=== PATIENT | female | born 1955 | race Caucasian/White ===

== ENCOUNTER 2019-09-25 00:05 | Observation (INO) | payer MEDICARE, OTHER ==
[2019-09-25] VITALS (12 sets, daily range): BP systolic 118–144; BP diastolic 55–72; PULSE 64–98; TEMP 97.5–98.8
[~2019-09-25] VITALS: Ht 154.9 cm; Wt 78.3 kg
[2019-09-25] MEDS ORDERED: OMEGA-3 FISH1000 MG PO (00:34)
[2019-09-25] MEDS ORDERED: LIPITOR 10MG10 MG PO (00:34)
--- NOTE | 2019-09-25 04:40 | NUR ---
Patient arrived to Room 328 via EMS stretcher. IVF infusing to right AC. Patient able to transfer to the hospital bed independently. Med rec completed. [address] Ackerman notified of patient's arrival and orders received. New fluids hung and infuse to right AC. Patient denies any pain or nausea. Patient is NPO per physician orders. Will conitinue to monitor.
[2019-09-25 07:25] LABS: ALBUMIN 3.6 gm/dL (3.5-5.0); BILIRUBIN,TOTAL 1.2 mg/dL (0.0-1.0); CREATININE, serum 0.73 (0.52-1.25); TOTAL PROTEIN 6.6 gm/dL (6.4-8.2)
[2019-09-25 07:30] LABS: BASO % 0.4 % (0.0-2.0); EOS # 0.1 (0.0-0.7); EOS % 1.7 % (0-4.0); GRAN # 4.8 (1.4-6.5); GRAN % 58.1 % (42.2-75.2); HEMOGLOBIN 12.5 g/dl (12.5-16.0); LYMPH # 2.6 (1.2-3.4); LYMPH % 31.1 % (20.0-51.0); MEAN CELL VOLUME 91 fl (80.0-100.0); MEAN CORPUSCULAR HEMOGLOBIN 29 pg (27.0-31.0); MEAN CORPUSCULAR HGB CONC 32 g/dl (33.0-37.0); MEAN PLATELET VOLUME 11.1 fl (7.4-10.4); MONO # 0.7 (0.1-0.6); MONO % 8.2 % (1.7-9.3); PLATELET COUNT 225 K/mm3 (130-400); RED BLOOD COUNT 4.31 M/mm3 (4.10-5.30); REDCELL DISTRIBUTION WIDTH-CV 13.7 % (11.5-14.5)
--- NOTE | 2019-09-25 08:00 | NUR ---
NPO. Denies pain or nausea. IV fluids infusing.
--- NOTE | 2019-09-25 10:45 | NUR ---
Dr. Ackerman saw patient. Surgical consent signed. To surgery per bed with OR staff.
--- NOTE | 2019-09-25 13:00 | NUR ---
Received patient from PACU per bed. VSS. States feels good. Bandaids x 4 to abdomen CDI.
--- NOTE | 2019-09-25 16:00 | NUR ---
Complained of intermittent epigastric pain like before surgery. Denied need for pain med. Ambulatory to bathroom and voided. VSS.
--- NOTE | 2019-09-25 18:00 | NUR ---
No complaints. Ambulatory in room. Taking food and fluids slowly.
[2019-09-26 03:52] VITALS: BP 119/56; PULSE 69; TEMP 98
--- NOTE | 2019-09-26 04:05 | NUR ---
Patient has rested well throughout the night. Denies pain. Ambulates frequently and gait is steady. States she is burping, but no gas as of yet. 4 lap sites noted and are covered with bandaids. Bandaids are clean, dry, and intact. Fluids to INT. Patient tolerating food and fluids well. Denies any further needs. IV antibiotics administered as ordered. Will continue to monitor.
[2019-09-26 08:43] VITALS: BP 105/50; PULSE 89; TEMP 98.3
--- NOTE | 2019-09-26 09:34 | NUR ---
SW met with patient to complete intake. Patient lives in [place] with her Steven [phone]. Patient states that she does not utilize any DME, and is indepeden with ADL's. Patient states that her PCP is Akil Layo at [facility]. Patient states that she is able to afford her medications. Patient provides that she will be going back home with her upon discharge and has no concerns in regards to dc. Patient provided that someone told her that the hospital needed a copy of her insurance card. SW made copy of insurance card, placed in chart, and gave card back to patient. Patient appointed spouse Steven as her DPOA-HC documentation completed, reviewed and signed by patient and two witnesses, AUBREE and nurse Radha. Patient stated patient will be going home today. Nothing further.
[2019-09-26] MEDS ORDERED: NORCO 325 MG-51 TAB PO (10:41)
--- NOTE | 2019-09-26 12:15 | NUR ---
Ambulatory in halls. Denied pain. Took po fluids well. Dr. Diaz saw patient on consult. Dr. Ackerman saw patient. Prescription given. Instructed on NPO after midnight for ERCP tomorrow. Dismissed to home with spouse.
[2019-09-27] MEDS ORDERED: NORCO 325 MG-51 TAB PO (11:39)
== END 2019-09-26 12:15 | disposition home or self-care (01) ==
LOC: JCC 00:05
PROVIDERS: ADMIT Surgery
DX: K80.40 Calculus of bile duct with cholecystitis, unspecified, without obstruction (principal); K82.A2 Perforation of gallbladder in cholecystitis; E78.5 Hyperlipidemia, unspecified; Z79.899 Other long term (current) drug therapy; Z98.51 Tubal ligation status
CPT/HCPCS: G0378; G0379; J0690; J1100; J1885; J1956; J2405; J2704; J7042; J7120; Q9967

== ENCOUNTER 2019-09-27 11:00 | Day surgery (SDC) | payer MEDICARE, OTHER ==
[2019-09-27] VITALS (7 sets, daily range): BP systolic 120–143; BP diastolic 59–71; PULSE 67–85; TEMP 98–98.3
[~2019-09-27] VITALS: Ht 154.9 cm; Wt 74.3 kg
[~2019-09-27 11:00] MED LIST: LIPITOR 10MG10 MG PO; NORCO 325 MG-51 TAB PO; OMEGA-3 FISH1000 MG PO
[2019-09-27] MEDS ORDERED: NORCO 325 MG-51 TAB PO (11:39)
--- NOTE | 2019-09-27 11:42 | NUR ---
TO RM AT 1110- CALL LIGHT IN REACH WILL BE RIDE HOME
--- NOTE | 2019-09-27 13:05 | NUR ---
Patient arrives to [facility] 4 via cart, accompanied by Endo RN Abbie. She is alert and oriented. She ambulates with standby assist and steady gait to the chair in her room. Monitoring is applied - VSS and WNL on room air. She denies pain or nausea. She is offered and receives water to drink. Discharge plan is discussed. Call light in reach. Will continue to monitor.
--- NOTE | 2019-09-27 13:28 | NUR ---
Dr. Mcwilliams comes to the bedside and speaks with the patient at this time.
--- NOTE | 2019-09-27 13:30 | NUR ---
Patient denies pain or nausea. Tolerating clear liquids.
--- NOTE | 2019-09-27 14:00 | NUR ---
Patient is resting comfortably in room. Denies pain, nausea, or need at this time.
--- NOTE | 2019-09-27 14:58 | NUR ---
Patient has met discharge criteria. Discharge instructions are discussed. She denies questions and verbalizes understanding. PIV is removed with catheter intact and hemostasis achieved. SHe is changing to her clothing inddependently.
--- NOTE | 2019-09-27 15:05 | NUR ---
Patient is escorted to the exit via wheelchair by staff. She expresses her gratitude for excellent care received today. She is discharged to home with ride in private vehicle at 1505.
== END 2019-09-27 15:05 | disposition home or self-care (01) ==
LOC: SDCO 11:00
DX: K80.50 Calculus of bile duct without cholangitis or cholecystitis without obstruction (principal); K57.10 Diverticulosis of small intestine without perforation or abscess without bleeding; E78.5 Hyperlipidemia, unspecified; E66.9 Obesity, unspecified
CPT/HCPCS: C1769; J1610; J2405; J2704; J3010; J7030; Q9967